=== PATIENT | male | born 1950 | race Caucasian/White ===

== ENCOUNTER 2018-02-01 07:26 | Outpatient (CLI) | payer MEDICARE, BC ==
--- NOTE | 2018-02-01 08:52 | RAD ---
RIGHT HUMERUS TWO VIEWS: History: Fall. Right arm injury. FINDINGS: The mid and distal humerus are intact. There are degenerative changes of the shoulder and elbow. IMPRESSION: No acute osseous abnormalities demonstrated on this exam. Please see separate report regarding abnorm alities of the right shoulder. POS: DIMA
--- NOTE | 2018-02-01 09:07 | RAD ---
RIGHT SHOULDER 3 VIEWS: HISTORY: Fall. Right shoulder injury. FINDINGS: Acromioclavicular and glenohumeral alignment are maintained. On the external rotation view, there is subtle lucency underlying the greater tuberosity without disruption of the visualized portions of th e cortical margins. Osteophytosis of each joint is evident. Well-corticated irregular-shaped ossifi cation just superior to the acromioclavicular joint is likely related to an old ossific avulsion or s econdary ossification center. IMPRESSION: 1. Subtle lucency associated with the base of the greater tuberosity is favored to be related to deg enerative changes, although a nondisplaced ossific avulsion injury is possible. If there is point te nderness at the insertion of the rotator cuff and greater tuberosity, please consider MRI evaluation of the shoulder. 2. Osteoarthritic changes about the shoulder as detailed above. POS: DIMA
== END 2018-02-01 07:27 | disposition home or self-care (01) ==
LOC: SCSRAD 07:26
PROVIDERS: ATTEND Family Medicine
DX: M25.511 Pain in right shoulder (principal); M19.011 Primary osteoarthritis, right shoulder; R93.7 Abnormal findings on diagnostic imaging of other parts of musculoskeletal system

== ENCOUNTER 2018-03-10 12:53 | Outpatient (CLI) | payer MEDICARE, BC ==
--- NOTE | 2018-03-10 13:59 | MRI ---
MRI OF RIGHT SHOULDER PERFORMED WITHOUT CONTRAST ENHANCEMENT: HISTORY: Right shoulder pain. The patient fell approximately 2 months ago. FINDINGS: Some moderate AC joint hypertrophic change is present. There is a massive rotator cuff tear involvin g basically the entirety of the supra- and infraspinatus tendons. It is retracted by approximately 3 .3 cm and measures at least 3.8 cm in the AP dimension. There are tendinopathy changes in the subsca pularis, but this appears intact. The biceps tendon is normal in position within the bicipital groov e. I cannot visualize the intraarticular portion of the biceps and it may be that it is very tendino pic or thinned. There is some mild atrophy of the supra- and mild to moderate atrophy of the infraspinatus muscles. Also, incidental note is made of moderate atrophy of the teres minor muscle. There are arthritic changes of the glenohumeral joint space. There is subchondral cystic change tori g the anterior glenoid. Somewhat degenerated appearance to the labrum. IMPRESSION: 1. Massive rotator cuff tear involving the supra- and infraspinatus tendons with mild to moderate as sociated muscle atrophy. 2. Marked tendinopathy changes of the superior fibers of the subscapularis tendon and there is proba segundo some interstitial tearing present in addition to the tendinopathy change. 3. Arthritic changes of the glenohumeral joint space. 4. Teres minor muscle atrophy which raises the possibility of quadrilateral space syndrome. POS: DOMINIQUE
== END 2018-03-10 12:54 | disposition home or self-care (01) ==
LOC: SCSMRI 12:53
PROVIDERS: ATTEND Orthopaedic Surgery
DX: M25.511 Pain in right shoulder (principal); M75.101 Unspecified rotator cuff tear or rupture of right shoulder, not specified as traumatic; M62.511 Muscle wasting and atrophy, not elsewhere classified, right shoulder; M19.011 Primary osteoarthritis, right shoulder

== ENCOUNTER 2024-01-19 06:37 | Day surgery (SDC) | payer MEDICARE ==
[2024-01-18 12:19] VITALS: BMI 23.1
[2024-01-19] MEDS ORDERED: ePHEDrine Sulfate 50 MG/10 ML VIAL ONE (08:30)
[2024-01-19] MEDS ORDERED: EPINEPHrine 1 MG/ML VIAL ONE (08:52)
[2024-01-19] MEDS ORDERED: Bacitracin Zinc Ointment 30 gm TUBE ONE (08:52)
[2024-01-19] MEDS ORDERED: Lidocaine 1% (PF) 30 ML VIAL ONE (08:52)
[2024-01-19] MEDS ORDERED: fentaNYL PF 100 MCG/2 ML SYRINGE ONE (09:01)
[2024-01-19] MEDS ORDERED: PROPOFOL 20 ML ONE (09:01)
[2024-01-19] MEDS ORDERED: Dexamethasone 20 MG/5 ML VIAL ONE (09:17)
[2024-01-19] MEDS ORDERED: Ondansetron PF 4 MG/2 ML Vial ONE (09:17)
== END 2024-01-19 11:25 | disposition home or self-care (01) ==
LOC: SDC 06:37
PROVIDERS: ATTEND Specialist
PROC: 0HB1XZZ Excision of Face Skin, External Approach (ICD-10-PCS; principal; 2024-01-19)
DX: C44.321 Squamous cell carcinoma of skin of nose (principal); H91.90 Unspecified hearing loss, unspecified ear; E03.9 Hypothyroidism, unspecified; E78.5 Hyperlipidemia, unspecified; Z79.890 Hormone replacement therapy; Z79.899 Other long term (current) drug therapy
CPT/HCPCS: 14060; J0171; 88305; 88331; 88332; J1100; J2001; J2405; J2704